=== PATIENT | male | born 1995 | race Caucasian/White ===

== ENCOUNTER 2020-07-10 15:37 | Emergency (ER) | payer OTHER ==
[2020-07-10] MEDS ORDERED: Sodium Chloride 0.9% 10 ML Syringe FLUSH PRN (16:09)
[2020-07-10] MEDS ORDERED: Sodium Chloride 0.9% 2.5 ML Syringe FLUSH PRN (16:09)
--- NOTE | 2020-07-10 16:14 | EDM.PDOC ---
ED HPI GENERAL MEDICAL PROBLEM - General Chief Complaint: Abdominal Pain Stated Complaint: STOMACHE PAIN Time Seen by Provider: 07/10/20 15:41 - History of Present Illness INITIAL COMMENTS - FREE TEXT/NARRATIVE: History of present illness: [] This pleasant 24-year-old male says he was quite athletic when he was in college but then since he has had 2 children and become more sedentary is gained a lot of weight. Starting 7 weeks ago he began to diet and exercise. He did this vigorously until 3 weeks ago he began to have trouble when he ate. He had right upper quadrant and epigastric pain after meals that is progressively gotten worse since and is gotten to the point where he cannot tolerate it. 7 days ago he had lab work done and was seen by primary doctor. At that time he was referred to surgery who yesterday had an ultrasound done on his gallbladder. Because the ultrasound looked normal and the labs were unremarkable the surgeon has recommended he have a nuclear medicine scan which will be done the end of this month. The pain is getting intolerable and he has some nausea. No change in bowel or bladder habits no fever and chills. The patient has successfully lost 20 pounds during this 7-week effort. Review of systems: As per history of present illness and below otherwise all systems reviewed and negative. Past medical history: As per history of present illness and as reviewed below otherwise non contributory. Surgical history: As per history of present illness and as reviewed below otherwise noncontributory. Social history: No reported history of drug or alcohol abuse. Family history: As per history of present illness and as reviewed below otherwise noncontributory. Physical exam: Constitutional - well developed, well-nourished and in no acute distress HEENT - normocephalic, no evidence of trauma - external nose and mouth normal - no mass in neck and no JVD - mucosae moist EYES - full EOM, PERRL, no icterus - no evidence of inflammation, injection, or drainage Respiratory - no respiratory distress, equal bilateral expansion, lungs clear to auscultation and no abnormal lung sounds Cardiovascular - Regular Rhythm with S1 and S2 appreciated and no murmur, gallop or rub. GI - abdomen soft without distension or organomegaly - normal bowel sounds - no guard or rebound Musculoskeletal no gross deformity of long bones or joints - no tenderness, swelling or edema Neurologic - Alert and oriented times four - CN II-XII grossly intact - motor sensory and coordination symmetrically normal Psychiatric - appropriate mood and affect with normal thought content Hematologic - No petechiae or purpura - mucosa appropriate color and sclera not pale - normal nail bed color and refill Integument - no rash or evidence of trauma - normal turgor Diagnostics: [] Therapeutics: [] Impression: [] Plan: [] Definitive disposition and diagnosis as appropriate pending reevaluation and review of above. abd Pain Score (Numeric/FACES): 9 - Related Data Allergies Allergy/AdvReac Type Severity Reaction Status Date / Time No Known Allergies Allergy Verified 07/10/20 16:02 Home Meds: Home Meds Acetaminophen/HYDROcodone [[place] 325-10 MG] 1 tab PO Q6H PRN #20 tablet 07/10/20 [Rx] Ketorolac [Toradol] 10 mg PO Q6H PRN #12 tab 07/10/20 [Rx] Ondansetron [Zofran ODT] 4 mg PO Q6H PRN #12 tab.dis 07/10/20 [Rx] Pantoprazole [ProTONIX] 40 mg PO DAILY #30 tab.cr 07/10/20 [Rx] ED ROS GENERAL - Review of Systems Review Of Systems: Comprehensive ROS is negative, except as noted in HPI. ED EXAM, GENERAL - Physical Exam Exam: See Below Free Text/Narrative:: My physical exam is in the HPI #1 Interpretation EKG Interpretation Comments: EKG sinus rhythm heart rate 50 [place] [address] [place] interval 163 QT 404 nonspecific ventricular conduction delay with ST elevation in early repole pattern. Impression no acute injury. There is no comparable to compare. Course - Vital Signs Text/Narrative:: The patient is increasingly comfortable as the rest of the emergency department. Dr. Wyatt asked that showed up and took care of the patient and arrange his HIDA scan for tomorrow. If it is negative she plans to scope him expeditiously. Patient to be treated for pain in the interim and placed on pantoprazole because of the possibility of peptic ulcer as a cause. Last Recorded V/S: Last Vital Signs Temp 36.8 C 07/10/20 16:06 Pulse 81 07/10/20 16:06 Resp 18 07/10/20 16:06 BP 121/79 07/10/20 16:06 Pulse Ox 96 03/11/21 16:06 - Orders/Labs/Meds Orders: Active Orders 24 hr Category Date Time Status EKG Documentation Completion [RC] AM Care 07/10/20 16:09 Active Sodium Chloride 0.9% [Saline Flush] Med 07/10/20 16:09 Active 10 ml FLUSH ASDIRECTED PRN Sodium Chloride 0.9% [Saline Flush] Med 07/10/20 16:09 Active 2.5 ml FLUSH ASDIRECTED PRN Saline Lock Insert [OM.PC] Stat Oth 07/10/20 16:10 Ordered Labs: Laboratory Tests 07/10/20 07/10/20 07/10/20 Range/Units 15:55 16:11 16:11 WBC 6.33 (4.0-11.0) K/uL RBC 4.99 (4.50-5.90) M/uL Hgb 16.1 (13.0-17.0) g/dL Hct 46.6 (38.0-50.0) % MCV 93.4 (80.0-98.0) fL MCH 32.3 H (27.0-32.0) pg MCHC 34.5 (31.0-37.0) g/dL RDW Std Deviation 42.7 (28.0-62.0) fl RDW Coeff of Pardeep 13 (11.0-15.0) % Plt Count 268 (150-400) K/uL MPV 9.30 (7.40-12.00) fL Neut % (Auto) 52.0 (48.0-80.0) % Lymph % (Auto) 36.0 (16.0-40.0) % [place] % (Auto) 4.9 (0.0-15.0) % Eos % (Auto) 6.3 (0.0-7.0) % Baso % (Auto) 0.8 (0.0-1.5) % Neut # (Auto) 3.3 (1.4-5.7) K/uL Lymph # (Auto) 2.3 (0.6-2.4) K/uL [place] # (Auto) 0.3 (0.0-0.8) K/uL Eos # (Auto) 0.4 (0.0-0.7) K/uL Baso # (Auto) 0.1 (0.0-0.1) K/uL Nucleated RBC % 0.0 /100WBC Nucleated RBCs # 0 K/uL Sodium 138 (136-148) mmol/L Potassium 3.5 (3.5-5.1) mmol/L Chloride 103 (98-107) mmol/L Carbon Dioxide 25.6 (21.0-32.0) mmol/L BUN 16 (7.0-18.0) mg/dL Creatinine 1.1 (0.8-1.3) mg/dL Est Cr Clr Drug Dosing 112.68 mL/min Estimated GFR (MDRD) > 60.0 ml/min Glucose 87 (74-106) mg/dL Calcium 8.8 (8.5-10.1) mg/dL Total Bilirubin 0.8 (0.2-1.0) mg/dL AST 18 (15-37) IU/L ALT 29 (14-63) IU/L Alkaline Phosphatase 54 (46-116) U/L Troponin I < 0.050 (0.000-0.056) ng/mL Total Protein 7.5 (6.4-8.2) g/dL Albumin 3.9 (3.4-5.0) g/dL Globulin 3.6 (2.6-4.0) g/dL Albumin/Globulin Ratio 1.1 (0.9-1.6) Lipase 110 (73-393) U/L Urine Color YELLOW Urine Appearance CLEAR Urine pH 6.0 (5.0-8.0) Ur Specific [place] 1.010 (1.001-1.035) Urine Protein NEGATIVE (NEGATIVE) mg/dL Urine Glucose (UA) NEGATIVE (NEGATIVE) mg/dL Urine Ketones NEGATIVE (NEGATIVE) mg/dL Urine Occult Blood NEGATIVE (NEGATIVE) Urine Nitrite NEGATIVE (NEGATIVE) Urine Bilirubin NEGATIVE (NEGATIVE) Urine Urobilinogen 0.2 (<2.0) EU/dL Ur Leukocyte Esterase NEGATIVE (NEGATIVE) Departure - Departure Time of Disposition: 17:20 Disposition: Home, Self-Care 01 Condition: Good Clinical Impression: Abdominal pain - Discharge Information Prescriptions: Acetaminophen/HYDROcodone [[place] 325-10 MG] 1 tab PO Q6H PRN #20 tablet PRN Reason: Pain (Severe 7-10) Pantoprazole [ProTONIX] 40 mg PO DAILY #30 tab.cr Ketorolac [Toradol] 10 mg PO Q6H PRN #12 tab PRN Reason: Pain (Moderate 4-6) Ondansetron [Zofran ODT] 4 mg PO Q6H PRN #12 tab.dis PRN Reason: Nausea Instructions: Abdominal Pain, Adult, [id number] Referrals: PCP,None [Primary Care Provider] - Shelby Almonte MD [Physician] - Forms: ED Department Discharge Additional Instructions: Dr. Wyatt has arranged your HIDA scan in the morning and will do an endoscopy if this does not demonstrate a clear cause for your pain. [facility] [address] [place] [id number] [facility] [address] [place] [id number] The following information is given to patients seen in the emergency department who are being discharged to home. This information is to outline your options for follow-up care. We provide all patients seen in our emergency department with a follow-up referral. The need for follow-up, as well as the timing and circumstances, are variable depending upon the specifics of your emergency department visit. If you don't have a primary care physician on staff, we will provide you with a referral. We always advise you to contact your personal physician following an emergency department visit to inform them of the circumstance of the visit and for follow-up with them and/or the need for any referrals to a consulting specialist. The emergency department will also refer you to a specialist when appropriate. This referral assures that you have the opportunity for follow-up care with a specialist. All of these measure are taken in an effort to provide you with optimal care, which includes your follow-up. Under all circumstances we always encourage you to contact your private physician who remains a resource for coordinating your care. When calling for follow-up care, please make the office aware that this follow-up is from your recent emergency room visit. If for any reason you are refused follow-up, please contact the [facility] Emergency Department at and asked to speak to the emergency department charge nurse. Sepsis Event Note (ED) - Evaluation Sepsis Screening Result: No Definite Risk - Focused Exam Vital Signs: Vital Signs Temp Pulse Resp BP Pulse Ox 07/10/20 16:06 36.8 C 81 18 121/79 96 - My Orders Last 24 Hours: My Active Orders 07/10/20 16:09 EKG Documentation Completion [RC] AM Sodium Chloride 0.9% [Saline Flush] 10 ml FLUSH ASDIRECTED PRN Sodium Chloride 0.9% [Saline Flush] 2.5 ml FLUSH ASDIRECTED PRN 07/10/20 16:10 Saline Lock Insert [OM.PC] Stat - Assessment/Plan Last 24 Hours: My Active Orders 07/10/20 16:09 EKG Documentation Completion [RC] AM Sodium Chloride 0.9% [Saline Flush] 10 ml FLUSH ASDIRECTED PRN Sodium Chloride 0.9% [Saline Flush] 2.5 ml FLUSH ASDIRECTED PRN 07/10/20 16:10 Saline Lock Insert [OM.PC] Stat
--- NOTE | 2020-07-10 16:51 | CR ---
INDICATION: Epigastric pain COMPARISON: None TECHNIQUE: PA and lateral views of the chest were acquired FINDINGS: TUBES AND LINES: None. HEART AND MEDIASTINUM: The heart size is normal. The mediastinal contour appears normal for patient age. LUNGS AND PLEURAL SPACES: The lungs appear normal.The pleural spaces are unremarkable. OSSEOUS STRUCTURES: Age-appropriate appearance. No acute focal finding. IMPRESSION: No evidence of active pulmonary disease. Dictated by Brady Jacques MD @ Jul 10 2020 4:48PM Signed by Dr. Brady Jacques @ Jul 10 2020 4:48PM
[2020-07-10 16:52] LABS: BLOOD UREA NITROGEN,BUN 16 mg/dL (7.0-18.0); CARBON DIOXIDE,CO2 25.6 mmol/L (21.0-32.0); CHLORIDE,CL 103 mmol/L (98-107); GLUCOSE RANDOM 87 mg/dL (74-106); LIPASE 110 U/L (73-393); POTASSIUM,K 3.5 mmol/L (3.5-5.1); SODIUM,NA 138 mmol/L (136-148)
[2020-07-10] MEDS ORDERED: Acetaminophen/HYDROcodone 325-10 MG Tab PO ONE (17:13)
[2020-07-10] MEDS ORDERED: Ketorolac 30 MG/ML SDV IVPUSH ONE (17:13)
[2020-07-10] MEDS ORDERED: Ondansetron 4 MG/2 ML SDV IVPUSH ONE (17:14)
== END 2020-07-10 18:10 | disposition home or self-care (01) ==
LOC: MW.ED 15:37
DX: R10.11 Right upper quadrant pain (principal); R10.13 Epigastric pain; Z79.899 Other long term (current) drug therapy
CPT/HCPCS: 36415; 71045; 80053; 81003; 83690; 84484; 85025; 93005; 96374; 96375; 99284; A9270; J1885; J2405; 93010; 99283

== ENCOUNTER 2020-07-15 13:04 | Day surgery (SDC) | payer OTHER ==
[~2020-07-15 13:04] MED LIST: Lactated Ringers 1,000 ML IV SCH; Sodium Chloride 0.9% 10 ML SDV IV PRN; Sodium Chloride 0.9% 10 ML Syringe FLUSH PRN; Sodium Chloride 0.9% 2.5 ML Syringe FLUSH PRN
[2020-07-15] MEDS ORDERED: Lidocaine 2% 5 ML SDV ONE (13:08)
[2020-07-15] MEDS ORDERED: fentaNYL 100 MCG/2 ML SDV ONE (13:08)
[2020-07-15] MEDS ORDERED: Propofol 200 MG/20 ML SDV ONE ×2 (13:08→13:36)
--- NOTE | 2020-07-15 13:34 | PCM.PREANE ---
Preanesthetic Assessment - Anesthesia/Transfusion/Family Hx Anesthesia History: Prior Anesthesia Without Reaction Family History of Anesthesia Reaction: No Transfusion History: No Prior Transfusion(s) - Review of Systems General: No Symptoms Pulmonary: No Symptoms Cardiovascular: No Symptoms Gastrointestinal: No Symptoms Neurological: No Symptoms Other: Reports: None - Physical Assessment NPO Status Date: 07/14/20 NPO Status Time: 21:00 Height: 1.83 m Weight: 99.79 kg ASA Class: 2 Mental Status: Alert & Oriented x3 Airway Class: Mallampati = 1 Dentition: Reports: Normal Dentition Thyro-Mental Finger Breadths: 3 Mouth Opening Finger Breadths: 3 ROM/Head Extension: Full Lungs: Clear to Auscultation, Normal Respiratory Effort Cardiovascular: Regular Rate, Regular Rhythm - Lab Values: Laboratory Last Values SARS-CoV-2 RNA (MARGI) NEGATIVE (NEGATIVE) 07/15/20 12:08 - Allergies Allergies/Adverse Reactions: Allergies Allergy/AdvReac Type Severity Reaction Status Date / Time adhesive Allergy Rash Verified 07/15/20 08:48 - Acknowledgements Anesthesia Type Planned: MAC (The patient understands and accepts the anesthetic risks and benefits of MAC. All questions answered. Consent signed. ) Pt an Appropriate Candidate for the Planned Anesthesia: Yes Alternatives and Risks of Anesthesia Discussed w Pt/Guardian: Yes Pt/Guardian Understands and Agrees with Anesthesia Plan: Yes PreAnesthesia Questionnaire - Past Health History Medical/Surgical History: Denies Medical/Surgical History HEENT History: Reports: Other (See Below) Other HEENT History: wears glasses/contacts Cardiovascular History: Reports: None Respiratory History: Reports: None Gastrointestinal History: Reports: Other (See Below) Other Gastrointestinal History: intermittent abd pain Genitourinary History: Reports: None Musculoskeletal History: Reports: None Neurological History: Reports: None Psychiatric History: Reports: None Endocrine/Metabolic History: Reports: None Hematologic History: Reports: None Immunologic History: Reports: None Oncologic (Cancer) History: Reports: None Dermatologic History: Reports: Other (See Below) Other Dermatologic History: MRSA approx 15 years ago - Infectious Disease History Infectious Disease History: Reports: Chicken Pox, Other (See Below) (COVID NEGATIVE JUNE 2020) - Past Surgical History Head Surgeries/Procedures: Reports: None HEENT Surgical History: Reports: Oral Surgery, Tonsillectomy Other HEENT Surgeries/Procedures: wisdom teeth extraction Cardiovascular Surgical History: Reports: None Respiratory Surgical History: Reports: None GI Surgical History: Reports: Hernia, Inguinal Other Male Surgeries/Procedures: orchiectomy as a child Endocrine Surgical History: Reports: None Neurological Surgical History: Reports: None Musculoskeletal Surgical History: Reports: Other (See Below) Other Musculoskeletal Surgeries/Procedures:: jabari knee surgery Dermatological Surgical History: Reports: None - History Comment History Comment: ETOH "1-2X A MONTH" - SUBSTANCE USE Tobacco Use Status *Q: Never Tobacco User Recreational Drug Use History: No - HOME MEDS Home Medications: Home Meds Acetaminophen/HYDROcodone [[place] 325-10 MG] 1 tab PO Q6H PRN #20 tablet 07/10/20 [Rx] Ketorolac [Toradol] 10 mg PO Q6H PRN #12 tab 07/10/20 [Rx] Ondansetron [Zofran ODT] 4 mg PO Q6H PRN #12 tab.dis 07/10/20 [Rx] Pantoprazole [ProTONIX] 40 mg PO DAILY #30 tab.cr 07/10/20 [Rx] Sucralfate 1 gm PO QID 07/15/20 [History] - CURRENT (IN HOUSE) MEDS Current Meds: Current Medications Lactated Ringer's (Ringers, Lactated) 1,000 mls @ 125 mls/hr IV ASDIRECTED ALEXANDER Sodium Chloride (Sodium Chloride 0.9% 10 Ml Syringe) 10 ml FLUSH ASDIRECTED PRN PRN Reason: Keep Vein Open Sodium Chloride (Sodium Chloride 0.9% 2.5 Ml Syringe) 2.5 ml FLUSH ASDIRECTED PRN PRN Reason: Keep Vein Open Sodium Chloride (Sodium Chloride 0.9% 10 Ml Syringe) 10 ml FLUSH ASDIRECTED PRN PRN Reason: Keep Vein Open Sodium Chloride (Sodium Chloride 0.9% 2.5 Ml Syringe) 2.5 ml FLUSH ASDIRECTED PRN PRN Reason: Keep Vein Open Sodium Chloride (Sodium Chloride 0.9% 10 Ml Sdv) 10 ml IV ASDIRECTED PRN PRN Reason: IV Use Discontinued Medications Fentanyl (Fentanyl 100 Mcg/2 Ml Sdv) Confirm Administered Dose 100 mcg .ROUTE .STK-MED ONE Stop: 07/15/20 13:09 Lidocaine (Lidocaine 2% 5 Ml Sdv) Confirm Administered Dose 5 ml .ROUTE .STK-MED ONE Stop: 07/15/20 13:09 Propofol (Propofol 200 Mg/20 Ml Sdv) Confirm Administered Dose 200 mg .ROUTE .STK-MED ONE Stop: 07/15/20 13:09
--- NOTE | 2020-07-15 13:50 | PCM.OPNOTE ---
- General Post-Op/Procedure Note Date of Surgery/Procedure: 07/15/20 Operative Procedure(s): Diagnostic EGD Findings: Normal EGD Pre Op Diagnosis: Epigastric abdominal pain Post-Op Diagnosis: same Anesthesia Technique: MAC Primary Surgeon: Shelby Almonte Condition: Good
--- NOTE | 2020-07-15 13:56 | PCM.POSTAN ---
POST ANESTHESIA ASSESSMENT - MENTAL STATUS Mental Status: Alert, Oriented - VITAL SIGNS Vital Signs: Last Vital Signs Temp Pulse 60 07/15/20 13:52 Resp 13 07/15/20 13:52 BP 112/52 L 07/15/20 13:52 Pulse Ox 96 07/15/20 13:52 - RESPIRATORY Respiratory Status: Respiratory Rate WNL, Airway Patent, O2 Saturation Stable - CARDIOVASCULAR CV Status: Pulse Rate WNL, Blood Pressure Stable - GASTROINTESTINAL GI Status: No Symptoms - PAIN Pain Score: 0 - POST OP HYDRATION Hydration Status: Adequate & Stable
--- NOTE | 2020-07-15 14:13 | PCM48HPAN ---
Post Anesthesia Note - EVALUATION WITHIN 48HRS OF ANESTHETIC Vital Signs in Normal Range: Yes Patient Participated in Evaluation: Yes Respiratory Function Stable: Yes Airway Patent: Yes Cardiovascular Function Stable: Yes Hydration Status Stable: Yes Pain Control Satisfactory: Yes Nausea and Vomiting Control Satisfactory: Yes Mental Status Recovered: Yes Vital Signs: Last Vital Signs Temp 36.6 C 07/15/20 14:01 Pulse 60 07/15/20 14:01 Resp 15 07/15/20 14:01 BP 110/54 L 07/15/20 14:01 Pulse Ox 97 07/15/20 14:01
--- NOTE | 2020-07-15 16:19 | OR ---
SURGEON: SHELBY ALMONTE MD DATE OF PROCEDURE: 07/15/2020 PREOPERATIVE DIAGNOSIS: Epigastric abdominal pain. POSTOPERATIVE DIAGNOSIS: Epigastric abdominal pain. PROCEDURE PERFORMED: Diagnostic esophagogastroduodenoscopy. PRIMARY SURGEON: Shelby Almonte MD ANESTHESIA: MAC. INSTRUMENT USED: Olympus endoscope. EXTENT OF EXAM: Second portion of duodenum. PREPARATION: Good. LIMITATIONS: None. INDICATIONS FOR EXAMINATION: The patient is a 24-year-old male who presented to my clinic with acute postprandial epigastric pain. He underwent a CT of the abdomen and pelvis and right upper quadrant ultrasound, both of which were normal. He underwent a HIDA scan that showed an ejection fraction of 91% and did mildly reproduce some of his symptoms. To rule out an upper GI source of his pain, we discussed the need for a diagnostic EGD. I explained the procedure, expected perioperative course, and the risks. He verbalized understanding and wishes to proceed. PROCEDURE IN DETAIL: The patient was brought into the OR and placed in a left lateral decubitus position. A time-out was completed verifying the patient's name, age, date of , allergies, and procedure to be performed. A bite block was placed in the patient's mouth. Monitored anesthesia care was induced and continuous oxygen was provided via nasal cannula throughout the procedure. After adequate sedation was achieved, a well-lubricated endoscope was placed in the patient's mouth and advanced under direct visualization to the second portion of duodenum. This appeared normal and a photograph taken. The scope was then fully withdrawn while examining the color, texture, anatomy, and integrity of mucosa of the upper GI tract. The duodenum appeared normal. A biopsy was taken in the duodenal bulb and sent to Pathology, labeled as duodenum. The scope was brought into the stomach, and a photograph taken of the pylorus and GE junction. Both appeared anatomically normal. There were no signs of gross ulceration or inflammation. Biopsies were taken of the gastric antrum, body, and fundus and sent for histologic review and H. pylori testing. The scope was brought into the distal esophagus, and a photograph taken of the Z-line. This appeared normal. The remainder of the esophageal mucosa appeared free of pathology. The scope was removed, and the procedure was terminated. The patient tolerated the procedure well and was taken to the PACU in stable condition. ENDOSCOPIC DIAGNOSIS: Epigastric abdominal pain. RECOMMENDATIONS: I called our pathologist. He will review the pathology results and get back to me in the next 1 to 2 days with our biopsy results. If these appear grossly normal, the patient and I will have a discussion regarding performing a laparoscopic, possible open cholecystectomy for biliary colic secondary to biliary hyperkinesia. JOHANNA OJEDA /[id number]
== END 2020-07-15 14:15 | disposition home or self-care (01) ==
LOC: MW.SDS 13:04
PROVIDERS: ATTEND Surgery
DX: R10.13 Epigastric pain (principal); Z01.812 Encounter for preprocedural laboratory examination; Z20.822 Contact with and (suspected) exposure to COVID-19; Z91.09 Other allergy status, other than to drugs and biological substances; Z79.899 Other long term (current) drug therapy; Z98.890 Other specified postprocedural states
CPT/HCPCS: 43239; 87635; 88305; 88312; J2704; J3010; J7120; U0002

== ENCOUNTER 2020-07-22 08:26 | Day surgery (SDC) | payer OTHER ==
[~2020-07-22 08:26] MED LIST changes: +Glycopyrrolate 0.2 MG/ML SDV ONE; +Ketorolac 30 MG/ML SDV ONE; +Lidocaine 2% 5 ML SDV ONE; +Midazolam 1 MG/ML 2 ML SDV ONE; +Ondansetron 4 MG/2 ML SDV ONE; +Propofol 200 MG/20 ML SDV ONE; +Rocuronium Bromide 50 MG/5 ML Syringe ONE; +ceFAZolin 2 GM in Premix Bag 1 BAG IV ONE; +fentaNYL 250 MCG/5 ML SDV ONE
--- NOTE | 2020-07-22 08:51 | PCM.PREANE ---
Preanesthetic Assessment - Anesthesia/Transfusion/Family Hx Anesthesia History: Prior Anesthesia Without Reaction Family History of Anesthesia Reaction: No Transfusion History: No Prior Transfusion(s) Intubation History: Unknown - Review of Systems General: No Symptoms Pulmonary: No Symptoms Cardiovascular: No Symptoms Gastrointestinal: Abdominal Pain, Diarrhea, Nausea Neurological: No Symptoms Other: Reports: None - Physical Assessment Vital Signs: Last Vital Signs Temp 36.4 C 07/22/20 08:30 Pulse 65 07/22/20 08:30 Resp 15 07/22/20 08:30 BP 132/62 07/22/20 08:30 Pulse Ox 98 07/22/20 08:30 Height: 6 ft Weight: 105.233 kg ASA Class: 2 Mental Status: Alert & Oriented x3 Airway Class: Mallampati = 1 Dentition: Reports: Normal Dentition Thyro-Mental Finger Breadths: 3 Mouth Opening Finger Breadths: 3 ROM/Head Extension: Full Lungs: Clear to Auscultation, Normal Respiratory Effort Cardiovascular: Regular Rate, Regular Rhythm - Allergies Allergies/Adverse Reactions: Allergies Allergy/AdvReac Type Severity Reaction Status Date / Time adhesive Allergy Rash Verified 07/21/20 09:41 - Blood Blood Available: No - Anesthesia Plan Pre-Op Medication Ordered: None - Acknowledgements Anesthesia Type Planned: General Anesthesia Pt an Appropriate Candidate for the Planned Anesthesia: Yes Alternatives and Risks of Anesthesia Discussed w Pt/Guardian: Yes Pt/Guardian Understands and Agrees with Anesthesia Plan: Yes PreAnesthesia Questionnaire - Past Health History Medical/Surgical History: Denies Medical/Surgical History HEENT History: Reports: Other (See Below) Other HEENT History: wears glasses/contacts Cardiovascular History: Reports: None Respiratory History: Reports: None Gastrointestinal History: Reports: Other (See Below) Other Gastrointestinal History: intermittent abd pain Genitourinary History: Reports: None Musculoskeletal History: Reports: Fracture Other Musculoskeletal History: bilateral fx femur Neurological History: Reports: None Psychiatric History: Reports: None Endocrine/Metabolic History: Reports: Obesity/BMI 30+ (BMI 31.5) Hematologic History: Reports: None Immunologic History: Reports: None Oncologic (Cancer) History: Reports: None Dermatologic History: Reports: Other (See Below) Other Dermatologic History: MRSA approx 15 years ago - Infectious Disease History Infectious Disease History: Reports: Chicken Pox, Other (See Below) (COVID NEGATIVE JUNE 2020) - Past Surgical History Head Surgeries/Procedures: Reports: None HEENT Surgical History: Reports: Oral Surgery, Tonsillectomy Other HEENT Surgeries/Procedures: wisdom teeth GI Surgical History: Reports: EGD (last week), Hernia, Inguinal Other Female Surgeries/Procedures: 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 Male Surgical History: Reports: Other (See Below) Musculoskeletal Surgical History: Reports: ORIF Other Musculoskeletal Surgeries/Procedures:: bilateral fx femur- left knee has 3 screws - History Comment History Comment: ETOH "1-2X A MONTH" - SUBSTANCE USE Tobacco Use Status *Q: Current Some Day Tobacco User Tobacco Use Within Last Twelve Months: Cigars Recreational Drug Use History: No - HOME MEDS Home Medications: Home Meds Acetaminophen/HYDROcodone [Anson 325-10 MG] 1 tab PO Q6H PRN #20 tablet 07/10/20 [Rx] Ketorolac [Toradol] 10 mg PO Q6H PRN #12 tab 07/10/20 [Rx] - CURRENT (IN HOUSE) MEDS Current Meds: Current Medications Lactated Ringer's (Ringers, Lactated) 1,000 mls @ 125 mls/hr IV ASDIRECTED ALEXANDER Sodium Chloride (Sodium Chloride 0.9% 2.5 Ml Syringe) 2.5 ml FLUSH ASDIRECTED PRN PRN Reason: Keep Vein Open Sodium Chloride (Sodium Chloride 0.9% 10 Ml Sdv) 10 ml IV ASDIRECTED PRN PRN Reason: IV Use Sodium Chloride (Sodium Chloride 0.9% 10 Ml Syringe) 10 ml FLUSH ASDIRECTED PRN PRN Reason: Keep Vein Open Discontinued Medications Fentanyl (Fentanyl 250 Mcg/5 Ml Sdv) Confirm Administered Dose 250 mcg .ROUTE .STK-MED ONE Stop: 07/22/20 07:02 Glycopyrrolate (Glycopyrrolate 0.2 Mg/Ml Sdv) Confirm Administered Dose 0.8 mg .ROUTE .STK-MED ONE Stop: 07/22/20 07:03 Cefazolin Sodium/Dextrose 2 gm (/ Premix) 50 mls @ 100 mls/hr IV ONETIME ONE Stop: 07/21/20 10:26 Ketorolac Tromethamine (Ketorolac 30 Mg/Ml Sdv) Confirm Administered Dose 30 mg .ROUTE .STK-MED ONE Stop: 07/22/20 07:03 Lidocaine (Lidocaine 2% 5 Ml Sdv) Confirm Administered Dose 5 ml .ROUTE .STK-MED ONE Stop: 07/22/20 07:03 Midazolam HCl (Midazolam 1 Mg/Ml 2 Ml Sdv) Confirm Administered Dose 2 mg .ROUTE .[employer]-MED ONE Stop: 07/22/20 07:02 Ondansetron HCl (Ondansetron 4 Mg/2 Ml Sdv) Confirm Administered Dose 4 mg .ROUTE .[facility] ONE Stop: 07/22/20 07:03 Propofol (Propofol 200 Mg/20 Ml Sdv) Confirm Administered Dose 200 mg .ROUTE .[employer]-MED ONE Stop: 07/22/20 07:02 Rocuronium [place] (Rocuronium [place] 50 Mg/5 Ml Syringe) Confirm Administered Dose 50 mg .ROUTE .[facility] ONE Stop: 07/22/20 07:03
[2020-07-22] MEDS ORDERED: Octyl 2-Cyanoacrylate 1 Tube ONE (09:09)
[2020-07-22] MEDS ORDERED: Bupivacaine 0.5% 30 ML SDV ONE (09:09)
[2020-07-22] MEDS ORDERED: ceFAZolin 1 GM Vial ONE (09:41)
[2020-07-22] MEDS ORDERED: Sodium Chloride 0.9% 20 ML ONE (09:41)
[2020-07-22] MEDS ORDERED: Acetaminophen 1,000 MG in Premix Bag 1 BAG IV PRN (10:42)
[2020-07-22] MEDS ORDERED: Meperidine PF 25 MG/ML Syringe IVPUSH ONE (11:02)
--- NOTE | 2020-07-22 11:05 | PCM.OPNOTE ---
- General Post-Op/Procedure Note Date of Surgery/Procedure: 07/22/20 Operative Procedure(s): Laparoscopic cholecystectomy Findings: Gallbladder with adhesions around the infundibulum Pre Op Diagnosis: Biliary colic Post-Op Diagnosis: same Anesthesia Technique: MAC Primary Surgeon: Shelby Almonte Fluid Replacement, Intraop: 1,200 Output, Urine Amount: 200 EBL in mLs: 5 Condition: Good Free Text/Narrative:: Intake & Output 07/21/20 07/22/20 07/22/20 22:59 06:59 14:59 Output Total 200 Balance -200
[2020-07-22] MEDS: fentaNYL 100 MCG/2 ML SDV IVPUSH PRN ×2 (11:10→11:16)
--- NOTE | 2020-07-22 11:39 | PCM.POSTAN ---
POST ANESTHESIA ASSESSMENT - MENTAL STATUS Mental Status: Alert, Oriented - VITAL SIGNS Vital Signs: Last Vital Signs Temp 36.8 C 07/22/20 10:59 Pulse 67 07/22/20 11:25 Resp 13 07/22/20 11:25 BP 105/65 07/22/20 11:25 Pulse Ox 98 07/22/20 11:25 - RESPIRATORY Respiratory Status: Respiratory Rate WNL, Airway Patent, O2 Saturation Stable - CARDIOVASCULAR CV Status: Pulse Rate WNL, Blood Pressure Stable - GASTROINTESTINAL GI Status: No Symptoms - PAIN Pain Score: 4 - POST OP HYDRATION Hydration Status: Adequate & Stable - OBSERVATIONS Free Text/Narrative:: No anesthesia problems
[2020-07-22] MEDS ORDERED: oxyCODONE 5 MG Tab PO ONE (13:09)
--- NOTE | 2020-07-22 13:28 | OR ---
SURGEON: SHELBY ALMONTE MD DATE OF PROCEDURE: 07/22/2020 PREOPERATIVE DIAGNOSIS: Biliary colic. POSTOPERATIVE DIAGNOSIS: Biliary colic. PROCEDURE PERFORMED: Laparoscopic cholecystectomy. PRIMARY SURGEON: Shelby Almonte MD ANESTHESIA: General endotracheal anesthesia. FLUIDS: 1200 mL of crystalloid. ESTIMATED BLOOD LOSS: 5 mL. URINE OUTPUT: 200 mL. FINDINGS: Gallbladder with adhesions along the infundibulum. COMPLICATIONS: None. INDICATIONS: The patient is a 24-year-old male who presents with right upper quadrant abdominal pain shortly after meals. A thorough workup has revealed that the likely source of this pain is biliary colic. I explained the need for laparoscopic, possible open, cholecystectomy. I explained the procedure, expected perioperative course, and risks. The patient verbalized understanding and wishes to proceed. PROCEDURE IN DETAIL: The patient was brought into the OR and placed on the OR table in supine position. A time-out was completed verifying the patient's name, age, date of , allergies, and procedure to be performed. General endotracheal anesthesia was induced. The left arm was tucked to the patient's side and a Rolle catheter placed. The abdomen was prepped and draped in usual standard fashion. I anesthetized the infraumbilical fold with 0.5% Marcaine plain. An 11 blade was used to make an incision along this fold. I bluntly dissected down to the fascia. The fascia was elevated with Rufus's and incised sharply. The posterior fascia was elevated and incised as well. I palpated my peritoneum. This was elevated with a hemostat and incised sharply. I then was able to digitally palpate into the abdomen. A 12 mm Jose Elias trocar was placed in the abdomen and it was insufflated. A 5 mm 30-degree scope was inserted. I inspected the area around my initial trocar placement. No damage to surrounding structures was noted. The patient was placed into reverse Trendelenburg position and airplaned slightly to the left. 5 mm trocars were placed in the following locations under direct visualization; one in the epigastric area, one in the right flank, and one 2 fingerbreadths below the right subcostal margin in the midclavicular line. The dome of the gallbladder was grasped with an atraumatic grasper through the right flank port and elevated anteriorly. There were adhesions to the surrounding duodenum and omentum proximally along the infundibulum. Using suction, I gently swept away these adhesions. I was then able to grab the infundibulum, and using a combination of hook cautery and blunt dissection, I dissected free my cystic duct and artery from the surrounding tissue. The node of Calot was identified. I then cleared away one-third of my cystic plate. Once my critical view was achieved, I doubly clipped and ligated my cystic duct and artery. The remaining attachments of the gallbladder wall to the cystic plate were taken down using hook cautery. The gallbladder was then placed in an Endo Catch bag and removed through the infraumbilical port site. The 12 mm trocar was placed back in the abdomen, and I inspected my operative field. It appeared to be hemostatic. A photograph was taken. I irrigated the abdomen with a small amount of normal saline, which was suctioned out. The 5 mm trocars were then removed under direct visualization and the abdomen allowed to desufflate. The fascia at the infraumbilical port site was closed with interrupted 0 Vicryl sutures. The subcutaneous fat layer was closed with interrupted 3-0 Vicryl stitches. The skin was closed with a running 4-0 Monocryl stitch. The 5 mm trocar sites were closed with interrupted 4-0 Monocryl suture. Dermabond and sterile dressings were applied. All counts were complete and correct at the end of the case. The patient was extubated and taken to PACU in stable condition. He tolerated the procedure well with no acute complications. JOHANNA / RUSTY /[id number]
--- NOTE | 2020-07-22 16:00 | PCM48HPAN ---
Post Anesthesia Note - EVALUATION WITHIN 48HRS OF ANESTHETIC Vital Signs in Normal Range: Yes Patient Participated in Evaluation: Yes Respiratory Function Stable: Yes Airway Patent: Yes Cardiovascular Function Stable: Yes Hydration Status Stable: Yes Pain Control Satisfactory: Yes Nausea and Vomiting Control Satisfactory: Yes Mental Status Recovered: Yes Vital Signs: Last Vital Signs Temp 36.9 C 07/22/20 11:28 Pulse 60 07/22/20 12:58 Resp 15 07/22/20 12:58 BP 105/55 L 07/22/20 12:58 Pulse Ox 99 07/22/20 12:58 - COMMENTS/OBSERVATIONS Free Text/Narrative:: No anesthesia problems
== END 2020-07-22 14:00 | disposition home or self-care (01) ==
LOC: MW.SDS 08:26
PROVIDERS: ATTEND Surgery
DX: K81.1 Chronic cholecystitis (principal); E66.9 Obesity, unspecified; Z68.31 Body mass index [BMI] 31.0-31.9, adult; F17.210 Nicotine dependence, cigarettes, uncomplicated; Z91.09 Other allergy status, other than to drugs and biological substances; Z98.890 Other specified postprocedural states
CPT/HCPCS: 47562; 88304; A9270; J0131; J0690; J1885; J2175; J2250; J2405; J2704; J3010; J3490; J7120; 00790